=== PATIENT | male | born 1980 | race Caucasian/White ===

== ENCOUNTER → 2016-10-03 | Outpatient (CLI) | payer MEDICARE, MEDICAID ==
[~2016-10-03] MED LIST: ASA CHILDREN'S81 MG PO; COLACE-DPS100 MG PO; CYMBALTA60 MG PO; DURAGESIC DPS75 MCG TD; HYDROCODON-ACE1 EAC6 PO; MYFORTIC360 MG PO; NITROSTAT0.4 MG SL; PLAVIX75 MG PO; PRILOSEC DPS20 MG PO; PROGRAF1 MG PO; RESTORIL DPS30 MG PO; SLOW-MAG64 MG PO; TACROLIMUS1 MG PO; TOPROL XL DPS25 MG PO; VIBRAMYCIN-DPS100 M2 PO; ZANAFLEX4 MG PO; ZESTRIL DPS10 MG PO; ZOFRAN8 MG PO; ZYRTEC DPS10 MG PO
== END | disposition home or self-care (01) ==
LOC: RAD.S 08:21
DX: Z48.22 Encounter for aftercare following kidney transplant (principal); D75.1 Secondary polycythemia; Z94.0 Kidney transplant status

== ENCOUNTER → 2016-12-09 | Outpatient (CLI) | payer MEDICARE, MEDICAID | END | disposition home or self-care (01) | LOC: PTH.S 07:53 | DX: Z48.288 Encounter for aftercare following multiple organ transplant (principal); Z94.0 Kidney transplant status; Z94.83 Pancreas transplant status; Z79.899 Other long term (current) drug therapy ==

== ENCOUNTER → 2016-12-16 | Outpatient (CLI) | payer MEDICARE, MEDICAID | END | disposition home or self-care (01) | LOC: PTH.S 12-15 08:45 | DX: Z48.288 Encounter for aftercare following multiple organ transplant (principal); Z94.0 Kidney transplant status; Z94.83 Pancreas transplant status; Z79.899 Other long term (current) drug therapy ==